=== PATIENT | female | born 1985 | race African-American/Black ===

== ENCOUNTER 2018-10-27 12:23 | Emergency (ER) | payer MEDICAID ==
[~2018-10-27] VITALS: Ht 180.3 cm; Wt 80.7 kg
[2018-10-27 12:30] VITALS: BP 127/75
== END 2018-10-27 12:55 | disposition home or self-care (01) ==
LOC: ER 12:25 → EDSEX 12:25 → ER 12:55
DX: L73.1 Pseudofolliculitis barbae (principal); R45.1 Restlessness and agitation; F43.10 Post-traumatic stress disorder, unspecified

== ENCOUNTER 2018-12-03 03:55 | Emergency (ER) | payer MEDICAID, OTHER ==
[~2018-12-03] VITALS: Ht 180.3 cm; Wt 78.0 kg
[2018-12-03 04:05] VITALS: BP 134/82
== END 2018-12-03 05:07 | disposition home or self-care (01) ==
LOC: ER 03:59
DX: J02.9 Acute pharyngitis, unspecified (principal); F43.10 Post-traumatic stress disorder, unspecified